=== PATIENT | female | born 1995 | race Caucasian/White ===

== ENCOUNTER → 2020-11-12 | Outpatient (CLI) | payer BC, OTHER ==
[2020-11-12 18:09] LABS: HEMOGLOBIN A1c 5.6 %
[2020-11-12 18:20] LABS: CHOLESTEROL RISK RATIO 3.314 (<5)
== END ==
LOC: M PLALAB 14:17
PROVIDERS: ATTEND Family Medicine
DX: Z13.1 Encounter for screening for diabetes mellitus (principal); Z13.220 Encounter for screening for lipoid disorders; Z23 Encounter for immunization; G57.02 Lesion of sciatic nerve, left lower limb; R10.9 Unspecified abdominal pain; Z76.89 Persons encountering health services in other specified circumstances
CPT/HCPCS: 36415; 80061; 83036; 90471; 90715; G0463

== ENCOUNTER → 2021-05-10 | Outpatient (CLI) | payer BC, OTHER | LOC: M PLALAB 10:18 | PROVIDERS: ATTEND Obstetrics & Gynecology | DX: Z34.82 Encounter for supervision of other normal pregnancy, second trimester (principal) ==

== ENCOUNTER → 2021-06-07 | Outpatient (CLI) | payer BC, OTHER | LOC: M WHC 15:35 | PROVIDERS: ATTEND Specialist | DX: Z34.82 Encounter for supervision of other normal pregnancy, second trimester (principal) ==

== ENCOUNTER → 2021-06-29 | Outpatient (CLI) | payer OTHER, SELFPAY | LOC: M WHC 08:05 | PROVIDERS: ATTEND Specialist | DX: Z34.82 Encounter for supervision of other normal pregnancy, second trimester (principal) ==

== ENCOUNTER → 2021-08-11 | Outpatient (CLI) | payer OTHER, SELFPAY ==
[2021-08-11 15:22] LABS: BASO % 0.2 % (0.0-1.0); EOS # 0.1 10^3/uL (0.0-0.5); EOS % 1.1 % (0.0-3.0); HEMATOCRIT 36.8 % (36.0-47.0); HEMOGLOBIN 12.2 g/dl (12.0-15.5); LYMPH # 1.7 10^3/uL (1.5-5.0); LYMPH % 21.2 % (24.0-44.0); MEAN CORPUSCULAR HGB CONC 33.2 g/dl (32.0-36.5); MEAN CORPUSCULAR VOLUME 93.6 fl (80.0-96.0); MONO # 0.7 10^3/uL (0.0-0.8); MONO % 8.6 % (2.0-8.0); NEUTROPHILS # 5.6 10^3/uL (1.5-8.5); NEUTROPHILS % 68.4 % (36.0-66.0); PLATELET COUNT, AUTOMATED 334 10^3/uL (150-450); RED BLOOD COUNT 3.93 10^6/uL (4.00-5.40); WHITE BLOOD COUNT 8.1 10^3/uL (4.0-10.0)
[2021-08-11 15:53] LABS: GLUCOSE CHALLENGE TEST 1 HOUR 89 MG/DL (LESS THAN 140)
[2021-08-11 16:45] LABS: HEPATITIS C VIRUS ABY INDEX 0.1 INDEX (<0.8)
[2021-08-11 16:46] LABS: HIV 1&2 SCREEN CENTAUR NEGATIVE (NEGATIVE)
[2021-08-11 16:53] LABS: GC DNA AMPLIFICATION NEGATIVE (NEGATIVE)
== END ==
LOC: M PLALAB 08:51
PROVIDERS: ATTEND Obstetrics & Gynecology
DX: O26.892 Other specified pregnancy related conditions, second trimester (principal)

== ENCOUNTER → 2021-10-06 | Outpatient (REF) | payer OTHER | LOC: M SFHCWAGY 13:10 | PROVIDERS: ATTEND Advanced Practice Midwife | DX: Z34.83 Encounter for supervision of other normal pregnancy, third trimester (principal) | CPT/HCPCS: 87081; G0463 ==

== ENCOUNTER 2021-11-06 20:56 | Inpatient (IN) | payer OTHER ==
[~2021-11-06] VITALS: Ht 157.5 cm; Wt 94.9 kg
[2021-11-06 21:10] VITALS: BP 150/82
[2021-11-06] MEDS ORDERED: PRENTAB9 PO (21:12)
[2021-11-06 21:26] VITALS: BP 144/77
[2021-11-06] MEDS ORDERED: HOME MED LIST COMPLETE! XX SCH (21:45)
[2021-11-06 22:23] VITALS: BP 135/83
[2021-11-07] VITALS (39 sets, daily range): BP systolic 113–159; BP diastolic 57–92
[2021-11-07] MEDS ORDERED: LACTATED RINGER'S 1000 ML IV STA (03:41)
[2021-11-07 04:42] LABS: HEMATOCRIT 35.3 % (36.0-47.0); HEMOGLOBIN 11.5 g/dl (12.0-15.5); MEAN CORPUSCULAR HEMOGLOBIN 28.8 pg (27.0-33.0); MEAN CORPUSCULAR HGB CONC 32.6 g/dl (32.0-36.5); MEAN CORPUSCULAR VOLUME 88.3 fl (80.0-96.0); PLATELET COUNT, AUTOMATED 373 10^3/uL (150-450); WHITE BLOOD COUNT 10.2 10^3/uL (4.0-10.0)
[2021-11-07 05:12] LABS: ALT/SGPT 20 U/L (12-78); BILIRUBIN,TOTAL 0.3 MG/DL (0.2-1.0); CREATININE FOR GFR 0.48 MG/DL (0.55-1.30); GLOMERULAR FILTRATION RATE > 60.0 (>60); LDH LACTATE DEHYDROGENASE 265 U/L (84-246)
[2021-11-07] MEDS: miSOPROStol 50MCG 1/2 TABLET PO SCH ×2 (05:28→09:31)
[2021-11-07] MEDS: LR 1,000 ML IV SCH ×4 (06:57→15:39)
[2021-11-07] MEDS ORDERED: OXYTOCIN DRIP 30 UNITS in IV 1 EA IV SCH (14:15)
[2021-11-07] MEDS ORDERED: NALOXONE INJ 0.4MG/1ML VIAL (J2310 PER 1MG) IV PRN (18:15)
[2021-11-07] MEDS ORDERED: ONDANSETRON 4MG 2ML VIAL IV PRN (18:15)
[2021-11-07] MEDS ORDERED: LR 500 ML IV PRN (18:15)
[2021-11-07] MEDS ORDERED: ePHEDrine SULFATE 25 MG/5 ML(5MG/ML) SYRINGE IVP PRN (18:15)
[2021-11-07] MEDS ORDERED: EPIDURAL/PCA KEYS XX PRN (18:15)
[2021-11-07] MEDS ORDERED: FENTANYL/ROPIVACAINE/NACL BAG 100 ML EPIDURAL SCH (18:15)
[2021-11-07] MEDS ORDERED: diphenhydrAMINE 50MG/ML VIAL (J1200) IV PRN (18:15)
[2021-11-08] MEDS ORDERED: DIBUCAINE 1% OINTMENT 30GM TOP PRN (00:05)
[2021-11-08] MEDS ORDERED: METHYLERGONOVINE MALEATE 0.2 MG/ML VIAL (J2210) IM PRN (00:05)
[2021-11-08] MEDS ORDERED: OXYTOCIN DRIP 30 UNITS in IV 1 EA IV SCH (00:05)
[2021-11-08] MEDS ORDERED: RHOGAM 300 MCG (1500 IU) INJ (J2790) IM SCH (00:05)
[2021-11-08] MEDS ORDERED: ACETAMINOPHEN TAB 650MG DOSE (2X325MG) PO PRN (00:05)
[2021-11-08] MEDS ORDERED: MOM 30ML SUSPENSION UDC PO PRN (00:05)
[2021-11-08] MEDS ORDERED: DOCUSATE SODIUM 100MG CAPSULE PO PRN (00:05)
[2021-11-08] MEDS ORDERED: ANUSOL HC CREAM 30GM TOP PRN (00:05)
[2021-11-08] MEDS ORDERED: IBUPROFEN 800 MG TAB PO PRN (00:05)
[2021-11-08 00:11] VITALS: BP 156/67
[2021-11-08 00:26] VITALS: BP 130/66
[2021-11-08 01:40] VITALS: BP 125/67
[2021-11-08] MEDS: IBUPROFEN 600MG TAB PO PRN ×2 (03:19→09:50)
[2021-11-08 06:00] VITALS: BP 105/50
[2021-11-08] MEDS: PRENATAL VITAMINS CHEWABLE TABLET PO SCH (09:50)
[2021-11-08] MEDS: ACETAMINOPHEN 500 MG TAB PO PRN ×2 (14:15→21:37)
[2021-11-08 18:00] VITALS: BP 128/67
[2021-11-09] MEDS: ACETAMINOPHEN 500 MG TAB PO PRN (02:45)
[2021-11-09 06:00] VITALS: BP 121/68
[2021-11-09] MEDS: PRENATAL VITAMINS CHEWABLE TABLET PO SCH (08:08)
[2021-11-09] MEDS: IBUPROFEN 600MG TAB PO PRN (08:36)
[2021-11-10] MEDS ORDERED: MEASLES,MUMPS,RUBELLA VACCINE INJ (MMR-II) (90707) SC.IMMUN ONE (09:00)
== END 2021-11-09 12:34 | disposition home or self-care (01) | DRG 807 ==
LOC: M LDO 20:56 → M LDI 11-07 03:40 → M OBS 11-08 01:35
PROVIDERS: ADMIT Obstetrics & Gynecology; ATTEND Advanced Practice Midwife
PROC: 10E0XZZ Delivery of Products of Conception, External Approach (ICD-10-PCS; principal; 2021-11-07)
PROC: 10907ZC Drainage of Amniotic Fluid, Therapeutic from Products of Conception, Via Natural or Artificial Opening (ICD-10-PCS; 2021-11-07)
DX: O77.0 Labor and delivery complicated by meconium in amniotic fluid (principal); Z37.0 Single live birth; Z3A.39 39 weeks gestation of pregnancy

== ENCOUNTER 2021-12-26 10:38 | Emergency (ER) | payer OTHER ==
[~2021-12-26] VITALS: Ht 157.5 cm; Wt 86.1 kg
[~2021-12-26 10:38] MED LIST: PRENTAB9 PO
[2021-12-26 10:39] VITALS: BP 127/74
[2021-12-26] MEDS ORDERED: IBUP200C25 PO (10:54)
[2021-12-26] MEDS ORDERED: OMEP10CASR PO (10:54)
== END 2021-12-26 15:11 | disposition left against medical advice (07) ==
LOC: M ED 10:38
DX: Z53.21 Procedure and treatment not carried out due to patient leaving prior to being seen by health care provider (principal)

== ENCOUNTER → 2022-08-01 | Outpatient (CLI) | payer OTHER ==
[~2022-08-01] MED LIST changes: +IBUP200C25 PO; +OMEP10CASR PO
[2022-08-01 10:57] LABS: HEMATOCRIT 39.4 % (36.0-47.0); MEAN CORPUSCULAR HEMOGLOBIN 29.6 pg (27.0-33.0); MEAN CORPUSCULAR VOLUME 89.7 fl (80.0-96.0); PLATELET COUNT, AUTOMATED 347 10^3/uL (150-450); RED BLOOD COUNT 4.39 10^6/uL (4.00-5.40); WHITE BLOOD COUNT 5.8 10^3/uL (4.0-10.0)
[2022-08-01 11:09] LABS: HEMOGLOBIN A1c 5.5 % (4.0-6.0)
[2022-08-01 11:38] LABS: ALBUMIN 4.1 G/DL (3.2-5.2); ALKALINE PHOSPHATASE 91 U/L (46-116); ALT/SGPT 48 U/L (7.0-40); AST/SGOT 29 U/L (<34); BILIRUBIN,TOTAL 0.6 MG/DL (0.3-1.2); BLOOD UREA NITROGEN 15 MG/DL (9-23); CALCIUM LEVEL 9.2 MG/DL (8.5-10.1); CARBON DIOXIDE LEVEL 26 MMOL/L (20-31); CHLORIDE LEVEL 105 MMOL/L (98-107); CHOLESTEROL LEVEL 180 MG/DL (<200); CHOLESTEROL RISK RATIO 3.38 (<5); CREATININE FOR GFR 0.65 MG/DL (0.55-1.30); FREE T4 1.24 NG/DL (0.89-1.76); GLOMERULAR FILTRATION RATE > 60.0 (>60); GLUCOSE, FASTING 83 MG/DL (60-100); HDL CHOLESTEROL 53.1 MG/DL (>40); LDL CHOLESTEROL 110.9 MG/DL (<100); NON-HDL-C 126.9 MG/DL; POTASSIUM SERUM 4.7 MMOL/L (3.5-5.1); SODIUM LEVEL 139 MMOL/L (136-145); THYROID STIMULATING HORMONE 1.388 uIU/ML (0.55-4.78); TOTAL PROTEIN 7.4 G/DL (5.7-8.2); TRIGLYCERIDES LEVEL 80 MG/DL (<150)
== END ==
LOC: M PLALAB 09:11
PROVIDERS: ATTEND Student in an Organized Health Care Education/Training Program
DX: Z00.01 Encounter for general adult medical examination with abnormal findings (principal)

== ENCOUNTER → 2022-08-04 | Outpatient (CLI) | payer OTHER | LOC: M RAD 14:03 | PROVIDERS: ATTEND Student in an Organized Health Care Education/Training Program | DX: R22.1 Localized swelling, mass and lump, neck (principal) ==

== ENCOUNTER → 2022-08-23 | Outpatient (REF) | payer OTHER | LOC: M SFHCWAGY 17:21 | PROVIDERS: ATTEND Advanced Practice Midwife | DX: Z12.4 Encounter for screening for malignant neoplasm of cervix (principal); Z01.419 Encounter for gynecological examination (general) (routine) without abnormal findings ==

== ENCOUNTER → 2023-03-14 | Outpatient (CLI) | payer OTHER | LOC: M LAB 12:28 | PROVIDERS: ATTEND Student in an Organized Health Care Education/Training Program | DX: K21.9 Gastro-esophageal reflux disease without esophagitis (principal) ==

== ENCOUNTER → 2023-07-24 | Outpatient (CLI) | payer OTHER ==
[2023-07-24 18:33] LABS: HEMATOCRIT 34.7 % (36.0-47.0); HEMOGLOBIN 12.1 g/dl (12.0-15.5); MEAN CORPUSCULAR HEMOGLOBIN 31.3 pg (27.0-33.0); MEAN CORPUSCULAR HGB CONC 34.9 g/dl (32.0-36.5); MEAN CORPUSCULAR VOLUME 89.9 fl (80.0-96.0); PLATELET COUNT, AUTOMATED 374 10^3/uL (150-450); RED BLOOD COUNT 3.86 10^6/uL (4.00-5.40)
[2023-07-24 19:39] LABS: HIV 1&2 SCREEN NEGATIVE (NEGATIVE)
[2023-07-24 19:47] LABS: HEPATITIS C VIRUS ABY INDEX 0.02 INDEX (<0.8)
== END ==
LOC: M PLALAB 14:48
PROVIDERS: ATTEND Advanced Practice Midwife
DX: Z34.81 Encounter for supervision of other normal pregnancy, first trimester (principal)

== ENCOUNTER → 2023-08-22 | Outpatient (CLI) | payer OTHER ==
[2023-08-22 16:08] LABS: FERRITIN 45.8 NG/ML (7.3-270.7)
== END ==
LOC: M PLALAB 11:28
PROVIDERS: ATTEND Advanced Practice Midwife
DX: Z36.89 Encounter for other specified antenatal screening (principal); Z3A.12 12 weeks gestation of pregnancy

== ENCOUNTER → 2023-08-24 | Outpatient (REF) | payer OTHER ==
[2023-08-24 14:51] LABS: GC DNA AMPLIFICATION NEGATIVE (NEGATIVE)
== END ==
LOC: M SFHCWAGY 12:20
PROVIDERS: ATTEND Advanced Practice Midwife
DX: Z34.81 Encounter for supervision of other normal pregnancy, first trimester (principal)

== ENCOUNTER → 2023-09-21 | Outpatient (REF) | payer OTHER | LOC: M PLALAB 14:14 | PROVIDERS: ATTEND Advanced Practice Midwife | DX: Z34.82 Encounter for supervision of other normal pregnancy, second trimester (principal) ==

== ENCOUNTER → 2023-10-22 | Outpatient (CLI) | payer OTHER | LOC: M RAD 15:02 | PROVIDERS: ATTEND Advanced Practice Midwife | DX: Z34.82 Encounter for supervision of other normal pregnancy, second trimester (principal) ==

== ENCOUNTER → 2023-12-12 | Outpatient (CLI) | payer OTHER ==
[2023-12-12 15:35] LABS: HEMATOCRIT 33.1 % (36.0-47.0); HEMOGLOBIN 11.2 g/dl (12.0-15.5); MEAN CORPUSCULAR HEMOGLOBIN 31.3 pg (27.0-33.0); MEAN CORPUSCULAR HGB CONC 33.8 g/dl (32.0-36.5); MEAN CORPUSCULAR VOLUME 92.5 fl (80.0-96.0); PLATELET COUNT, AUTOMATED 373 10^3/uL (150-450); RED BLOOD COUNT 3.58 10^6/uL (4.00-5.40); WHITE BLOOD COUNT 9.4 10^3/uL (4.0-10.0)
[2023-12-12 16:03] LABS: GLUCOSE CHALLENGE TEST 1 HOUR 67 MG/DL (LESS THAN 140)
[2023-12-12 16:45] LABS: HEPATITIS C VIRUS ABY INDEX 0.03 INDEX (<0.8)
== END ==
LOC: M PLALAB 10:52
PROVIDERS: ATTEND Advanced Practice Midwife
DX: O09.292 Supervision of pregnancy with other poor reproductive or obstetric history, second trimester (principal)

== ENCOUNTER → 2024-02-05 | Outpatient (REF) | payer OTHER | LOC: M SFHCWAGY 12:48 | PROVIDERS: ATTEND Advanced Practice Midwife | DX: Z34.83 Encounter for supervision of other normal pregnancy, third trimester (principal) ==

== ENCOUNTER 2024-02-18 16:30 | Outpatient (CLI) | payer OTHER ==
[~2024-02-18] VITALS: Ht 157.5 cm; Wt 90.9 kg
[2024-02-18 16:52] VITALS: BP 121/70
== END 2024-02-18 17:20 | disposition home or self-care (01) ==
LOC: M LDO 16:30
PROVIDERS: ATTEND Advanced Practice Midwife
DX: O47.1 False labor at or after 37 completed weeks of gestation (principal); Z3A.38 38 weeks gestation of pregnancy
CPT/HCPCS: 59025; G0463

== ENCOUNTER 2024-02-20 20:24 | Outpatient (CLI) | payer OTHER ==
[~2024-02-20] VITALS: Ht 157.5 cm; Wt 91.2 kg
[2024-02-20 20:39] VITALS: BP 125/65
[2024-02-20] MEDS ORDERED: HOME MED LIST COMPLETE! XX SCH (20:55)
== END 2024-02-20 21:31 | disposition home or self-care (01) ==
LOC: M LDO 20:24
PROVIDERS: ATTEND Specialist
DX: O47.1 False labor at or after 37 completed weeks of gestation (principal); Z3A.38 38 weeks gestation of pregnancy
CPT/HCPCS: 59025; G0463

== ENCOUNTER 2024-02-25 20:31 | Inpatient (IN) | payer OTHER ==
[~2024-02-25] VITALS: Ht 157.5 cm; Wt 92.6 kg
[2024-02-25] MEDS: LACTATED RINGER'S 1000 ML IV STA (20:39)
[2024-02-25] MEDS ORDERED: LIDOCAINE 1% MDV 20ML VIAL INFIL PRN (20:40)
[2024-02-25] MEDS ORDERED: CARBOPROST TROMETHAMINE 250 MCG/ML AMP IM PRN (20:40)
[2024-02-25] MEDS ORDERED: OXYTOCIN DRIP 30 UNITS in IV 1 EA IV PRN (20:40)
[2024-02-25] MEDS ORDERED: OXYTOCIN INJ 10UNITS/ML 1ML VIAL IM PRN (20:40)
[2024-02-25 20:59] VITALS: BP 127/73
[2024-02-25 21:36] VITALS: BP 127/73
[2024-02-25 21:39] LABS: HEMATOCRIT 28.6 % (36.0-47.0); HEMOGLOBIN 9.3 g/dl (12.0-15.5); MEAN CORPUSCULAR HEMOGLOBIN 27.4 pg (27.0-33.0); MEAN CORPUSCULAR HGB CONC 32.5 g/dl (32.0-36.5); MEAN CORPUSCULAR VOLUME 84.1 fl (80.0-96.0); PLATELET COUNT, AUTOMATED 377 10^3/uL (150-450); WHITE BLOOD COUNT 9.5 10^3/uL (4.0-10.0)
[2024-02-25 22:11] VITALS: BP 123/78
[2024-02-25 22:32] LABS: HEPATITIS C VIRUS ABY INDEX < 0.02 INDEX (<0.8)
[2024-02-25 22:40] VITALS: BP 120/75
[2024-02-25 23:10] VITALS: BP 111/70
[2024-02-25] MEDS: LR 1,000 ML IV SCH (23:12)
[2024-02-25] MEDS: OXYTOCIN DRIP 30 UNITS in IV 1 EA IV SCH (23:13)
[2024-02-25 23:40] VITALS: BP 117/59
[2024-02-26] VITALS (70 sets, daily range): BP systolic 88–127; BP diastolic 49–77
[2024-02-26] MEDS ORDERED: EPIDURAL/PCA KEYS XX PRN (01:50)
[2024-02-26] MEDS ORDERED: NALOXONE INJ 0.4MG/1ML VIAL IV PRN (01:50)
[2024-02-26] MEDS ORDERED: diphenhydrAMINE 50MG/ML VIAL IV PRN (01:50)
[2024-02-26] MEDS ORDERED: ONDANSETRON 4MG 2ML VIAL IV PRN (01:50)
[2024-02-26] MEDS: FENTANYL/ROPIVACAINE/NACL BAG 100 ML EPIDURAL SCH (02:01)
[2024-02-26] MEDS: ePHEDrine SULFATE 25 MG/5 ML(5MG/ML) SYRINGE IVP PRN (22:54)
[2024-02-26] MEDS: LR 500 ML IV PRN (22:54)
[2024-02-27] VITALS (14 sets, daily range): BP systolic 105–134; BP diastolic 56–73; O2SAT 98–99
[2024-02-27] MEDS ORDERED: RHOGAM 300MCG (1500IU) INJ IM SCH (00:40)
[2024-02-27] MEDS ORDERED: DOCUSATE SODIUM 100MG CAPSULE PO PRN (00:40)
[2024-02-27] MEDS ORDERED: METHYLERGONOVINE MALEATE 0.2 MG TAB PO PRN (00:40)
[2024-02-27] MEDS: METHYLERGONOVINE MALEATE 0.2MG/ML 1ML VIAL IM PRN (01:58)
[2024-02-27] MEDS: IBUPROFEN 600MG TAB PO PRN (02:57)
[2024-02-27] MEDS: TRANEXAMIC ACID INJection 1,000 MG in NS 100 ML IV PRN (02:57)
[2024-02-27] MEDS: ACETAMINOPHEN 500 MG TAB PO PRN (05:03)
[2024-02-27] MEDS: DIBUCAINE 1% OINTMENT 30GM TOP PRN (05:03)
[2024-02-27] MEDS: PRENATAL VITAMINS CHEWABLE TABLET PO SCH (10:18)
[2024-02-28 01:55] VITALS: BP 107/55; O2SAT 100
[2024-02-28 05:52] VITALS: BP 116/68; O2SAT 99
[2024-02-28 07:14] LABS: HEMATOCRIT 24.2 % (36.0-47.0); HEMOGLOBIN 7.9 g/dl (12.0-15.5); MEAN CORPUSCULAR HEMOGLOBIN 27.6 pg (27.0-33.0); MEAN CORPUSCULAR HGB CONC 32.6 g/dl (32.0-36.5); MEAN CORPUSCULAR VOLUME 84.6 fl (80.0-96.0); PLATELET COUNT, AUTOMATED 321 10^3/uL (150-450); RED BLOOD COUNT 2.86 10^6/uL (4.00-5.40); WHITE BLOOD COUNT 8.7 10^3/uL (4.0-10.0)
[2024-02-28 09:46] VITALS: BP 114/64; O2SAT 100
[2024-02-28] MEDS ORDERED: IBUP-1022 PO (11:37)
[2024-02-29] MEDS ORDERED: MEASLES,MUMPS,RUBELLA VACCINE INJ (MMR-II) SC.IMMUN ONE (09:00)
== END 2024-02-28 12:37 | disposition home or self-care (01) | DRG 807 ==
LOC: M LDI 20:31 → M OBS 02-27 04:35
PROVIDERS: ADMIT Advanced Practice Midwife; ATTEND Obstetrics & Gynecology
PROC: 3E033VJ Introduction of Other Hormone into Peripheral Vein, Percutaneous Approach (ICD-10-PCS; 2024-02-25)
PROC: 10907ZC Drainage of Amniotic Fluid, Therapeutic from Products of Conception, Via Natural or Artificial Opening (ICD-10-PCS; 2024-02-26)
PROC: 10E0XZZ Delivery of Products of Conception, External Approach (ICD-10-PCS; principal; 2024-02-27)
DX: O80 Encounter for full-term uncomplicated delivery (principal); Z37.0 Single live birth; Z3A.39 39 weeks gestation of pregnancy

== ENCOUNTER → 2024-07-07 | Outpatient (CLI) | payer OTHER ==
[~2024-07-07] MED LIST changes: +IBUP-1022 PO
[2024-07-07 13:57] LABS: HEMATOCRIT 36.4 % (36.0-47.0); HEMOGLOBIN 11.9 g/dl (12.0-15.5); MEAN CORPUSCULAR HGB CONC 32.7 g/dl (32.0-36.5); MEAN CORPUSCULAR VOLUME 82.5 fl (80.0-96.0); PLATELET COUNT, AUTOMATED 338 10^3/uL (150-450); RED BLOOD COUNT 4.41 10^6/uL (4.00-5.40); WHITE BLOOD COUNT 6.2 10^3/uL (4.0-10.0)
[2024-07-07 14:00] LABS: THYROID STIMULATING HORMONE 1.686 uIU/ML (0.55-4.78)
[2024-07-07 14:01] LABS: FREE T4 1.42 NG/DL (0.89-1.76)
[2024-07-07 14:07] LABS: ALBUMIN 4.1 G/DL (3.2-5.2); ALKALINE PHOSPHATASE 82 U/L (35-104); ALT/SGPT 34 U/L (7.0-40); AST/SGOT 19 U/L (<34); BILIRUBIN,TOTAL 0.4 MG/DL (0.3-1.2); BLOOD UREA NITROGEN 18 MG/DL (9-23); CALCIUM LEVEL 9.3 MG/DL (8.5-10.1); CARBON DIOXIDE LEVEL 26 MMOL/L (20-31); CHLORIDE LEVEL 106 MMOL/L (98-107); CHOLESTEROL LEVEL 198 MG/DL (<200); CHOLESTEROL RISK RATIO 3.49 (<5); GLOMERULAR FILTRATION RATE > 90.0 (>60); GLUCOSE, FASTING 88 MG/DL (60-100); HDL CHOLESTEROL 56.6 MG/DL (>40); LDL CHOLESTEROL 126.4 MG/DL (<100); NON-HDL-C 141.4 MG/DL; POTASSIUM SERUM 4.4 MMOL/L (3.5-5.1); SODIUM LEVEL 141 MMOL/L (136-145); TOTAL PROTEIN 7.7 G/DL (5.7-8.2); TRIGLYCERIDES LEVEL 75 MG/DL (<150)
[2024-07-07 14:11] LABS: HEMOGLOBIN A1c 5.8 % (4.0-6.0)
== END ==
LOC: M PLALAB 09:45
DX: Z13.1 Encounter for screening for diabetes mellitus (principal)

== ENCOUNTER → 2024-07-18 | Outpatient (REF) | payer OTHER | LOC: M SFHCPLAZ 18:39 | DX: R73.03 Prediabetes (principal) ==